=== PATIENT | female | born 1950 | race Caucasian/White ===

== ENCOUNTER 2019-05-21 11:25 | Emergency (ER) | payer OTHER, SELFPAY ==
[2019-05-21 11:38] VITALS: BP 129/89; PULSE 59; RESP 17; TEMP 36.3; O2SAT 97
--- NOTE | 2019-05-21 11:38 | DI.CT.S_ITS ---
PROCEDURE: CT HEAD/BRAIN WO CON INDICATIONS: glf, hit head on cement TECHNIQUE: Noncontrast 4.5 mm thick angled axial sections acquired from the foramen magnum to the vertex, with coronal and sagittal reformats. For radiation dose reduction, the following was used: automated exposure control, adjustment of mA and/or kV according to patient size. COMPARISON: None. FINDINGS: Image quality: Excellent. CSF spaces: Basal cisterns are patent. No extra-axial fluid collections. The ventricles are symmetric in size and shape. Brain: No intracranial bleeds or masses. There is cerebral volume loss for age, with resultant ventricular and sulcal prominence. There are periventricular and deep white matter chronic small vessel ischemic changes. There is intracranial internal carotid artery atherosclerosis. Skull and face: Calvarium and visualized facial bones appear intact, without suspicious lesions. Sinuses: Mucosal thickening can be seen within the visualized maxillary sinuses. The paranasal sinuses otherwise appear clear. No abnormal fluid is seen within the mastoid air cells or within the middle ear cavities. IMPRESSION: No acute intracranial hemorrhage. No displaced calvarial fracture can be seen. Dictated by: Vernon Briones M.D. on 05/21/2019 at 11:05 Approved by: Vernon Briones M.D. on 05/21/2019 at 11:06
--- NOTE | 2019-05-21 11:59 | ED.HEATRA ---
HPI - Head Injury <JOE Pickett - Last Filed: 05/21/19 12:50> General Chief complaint: Head Injury Stated complaint: fell and hit head Time Seen by Provider: 05/21/19 11:27 Source: patient and family Mode of arrival: ambulatory Limitations: no limitations History of Present Illness HPI Narrative: The patient is a 69-year-old female nonsmoker nondrinker with history of hypothyroid who presents with her for chief complaint of a ground level fall this morning. She states she was pulling on a road, it broke and she fell back hitting her head on cement. Afterwards she was dazed per her . Then she states she kept wanting to throw up. She denies any loss of consciousness. Her was there, but did not witness the fall. She denies any vomiting current dizziness or lightheadedness. She states she has pain on the side of her neck going down her arm, which correlates with her arthritis pain, but is worse right now. She denies any central neck or back pain. She denies any laceration. She complains of swelling on the back of her head, where it hit the cement. Her primary concern is a brain injury. Related Data Home Medications Medication Instructions Recorded Confirmed CA PANTOTHENATE/FOLIC ACID/VIT #0 05/23/13 (MULTIVITAMIN) DOCUSATE CALCIUM (SURFAK) #0 05/23/13 Fish Oil (FISH OIL~) 1,200 mg PO QDAY #0 05/23/13 VITAMIN E #0 05/23/13 [CALCIUM WITH VIT D] 1,000 mg PO QDAY #0 05/23/13 [PROGESSTERONE] 200 mg QDAY #0 05/23/13 [VITAMIN C / VIVI HIP] #0 05/23/13 estradiol [Estrace] #0 05/23/13 levothyroxine [Synthroid] 125 mcg PO QDAY #0 05/23/13 Allergies Allergy/AdvReac Type Severity Reaction Status Date / Time Penicillins [PENICILLINS] Allergy Intermediate Hives Unverified 05/21/19 11:31 aspartame [ASPARTAME] AdvReac Mild HEADACHE Unverified 01/27/18 12:12 Review of Systems <JOE Pickett - Last Filed: 05/21/19 12:50> Review of Systems GENERAL: Denies chills, fatigue, malaise, fever, sweats. HEENT: Denies sinus pain, ear pain, sore throat, difficulty swallowing, dizziness. RESPIRATORY: Denies dyspnea, cough, wheezing, hemoptysis, sputum. CARDIOVASCULAR: Denies chest pain, palpitations, orthopnea, edema, GASTROINTESTINAL: Denies nausea, vomiting, abdominal pain, diarrhea, constipation, melena. : Denies dysuria, frequency, incontinence, hematuria, urinary retention. MUSCULOSKELETAL: denies weakness, joint pain, or bony pain SKIN: Denies rash, skin lesions, or other NEUROLOGIC: See HPI PSYCHIATRIC: No concerning psychosocial issues. 12 point review of systems is negative except for those stated above PFSH <JOE Pickett - Last Filed: 05/21/19 12:50> Medical History (Updated 05/21/19 @ 12:22 by JOE Pickett) Hypothyroid (Acute) Social History Smoking Status: Never smoker Social History Smoking Status: Never smoker Exam <JOE Pickett - Last Filed: 05/21/19 12:50> Narrative Exam Narrative: GENERAL: This is a well-nourished, well-developed patient, in no acute distress HEAD: Atraumatic. Normocephalic. No temporal or scalp tenderness. EYES: Pupils equal round and reactive. Extraocular motions intact. No scleral icterus. No injection or drainage. ENT: Nose without bleeding, purulent drainage or septal hematoma. Throat without erythema, tonsillar hypertrophy or exudate. Uvula midline. Airway patent. NECK: Trachea midline. No JVD or lymphadenopathy. Supple, nontender, no meningeal signs. CARDIOVASCULAR: Regular rate and rhythm without murmurs, gallops, or rubs. RESPIRATORY: Clear to auscultation. Breath sounds equal bilaterally. No wheezes, rales, or rhonchi. No cough. No increased respiratory effort. No accessory muscle use. GASTROINTESTINAL: Abdomen soft, non-tender, nondistended. No hepato-splenomegaly, or palpable masses. No guarding. EXTREMITIES: No clubbing, cyanosis, or edema. No joint tenderness, effusion, or edema noted. BACK: Nontender without deformity or crepitance. No flank tenderness. No pain to C T or L spine palpation. Pain to left-sided sternocleidomastoid palpation. NEURO: AOx3. Steady gait. Strength is equal upper and lower extremities bilaterally. Clear speech. SKIN: No rash or erythema. Initial Vital Signs Initial Vital Signs: Vital Signs Temperature 97.4 F L 05/21/19 11:38 Pulse Rate 59 L 05/21/19 11:38 Respiratory Rate 17 05/21/19 11:38 Blood Pressure 129/89 05/21/19 11:38 Pulse Oximetry 97 05/21/19 11:38 <Radha Brock DO - Last Filed: 05/29/19 20:24> Initial Vital Signs Initial Vital Signs: Vital Signs Temperature 97.4 F L 05/21/19 11:38 Pulse Rate 59 L 05/21/19 11:38 Respiratory Rate 17 05/21/19 11:38 Blood Pressure 129/89 05/21/19 11:38 Pulse Oximetry 97 05/21/19 11:38 Scores <JOE Pickett - Last Filed: 05/21/19 12:50> GCS [place] coma scale eye opening: Spontaneous [place] coma scale verbal response: Orientated [place] coma scale motor response: Obey commands [place] coma scale total score: 15 Nexus Score for C-Spine Focal Neurologic deficit present: No Midline spinal tenderness present: No Altered level of conciousness present: No Intoxication present: No Distracting Injury Present: No Nexus Criteria for C-spine: 0 Course <JOE Pickett - Last Filed: 05/21/19 12:50> Orders Ordered: ED Orders 05/21/19 11:38 CT head/brain wo con Stat Vital Signs - 8 hr 05/21/19 11:38 Temperature 97.4 F L Pulse Rate 59 L Respiratory Rate 17 Blood Pressure [Right Arm] 129/89 Pulse Oximetry 97 <Radha Brock DO - Last Filed: 05/29/19 20:24> Orders Ordered: ED Orders 05/21/19 11:38 CT head/brain wo con Stat Vital Signs - 8 hr 05/21/19 11:38 Temperature 97.4 F L Pulse Rate 59 L Respiratory Rate 17 Blood Pressure [Right Arm] 129/89 Pulse Oximetry 97 MDM - Head Injury <JOE Pickett - Last Filed: 05/21/19 12:50> Imaging Data CT scan - head: Radiologist's impression: [address] [address] [address] Scan Report Signed Patient: Dominga Shah [facility]#: [id number] : 1950Acct:[id number] Age/Sex: 69 / FDate of Service: 05/21/19 Loc: ED Accession Number: [id number] Procedure: CT head/brain wo con Ordering Provider: Jelly Augustine PROCEDURE: CT HEAD/BRAIN WO CON INDICATIONS: glf, hit head on cement TECHNIQUE: Noncontrast 4.5 mm thick angled axial sections acquired from the foramen magnum to the vertex, with coronal and sagittal reformats. For radiation dose reduction, the following was used: automated exposure control, adjustment of mA and/or kV according to patient size. COMPARISON: None. FINDINGS: Image quality: Excellent. CSF spaces: Basal cisterns are patent. No extra-axial fluid collections. The ventricles are symmetric in size and shape. Brain: No intracranial bleeds or masses. There is cerebral volume loss for age, with resultant ventricular and sulcal prominence. There are periventricular and deep white matter chronic small vessel ischemic changes. There is intracranial internal carotid artery atherosclerosis. Skull and face: Calvarium and visualized facial bones appear intact, without suspicious lesions. Sinuses: Mucosal thickening can be seen within the visualized maxillary sinuses. The paranasal sinuses otherwise appear clear. No abnormal fluid is seen within the mastoid air cells or within the middle ear cavities. IMPRESSION: No acute intracranial hemorrhage. No displaced calvarial fracture can be seen. Dictated by: Vernon Briones M.D. on 05/21/2019 at 11:05 Approved by: Vernon Briones M.D. on 05/21/2019 at 11:06 [facility] Narrative Medical decision making narrative: The patient is a 69-year-old female who presents after a ground level fall, hitting her head on cement. She was dazed and had some nausea. Given her age and symptoms, I did obtain a head CT which was negative for any acute etiology at this time. I offered her pain medications in the emergency department, including muscle relaxers which she repeatedly declined. I discussed at length follow up with her PCP. Discussed coming back to the ER for any acute concerns such as confusion, incontinence of bowel, incontinence of bladder or saddle anesthesia. Given that she does have some concussion symptoms, I discussed brain rest as well. Patient has no questions or concerns upon discharge. Discharge Plan Departure Patient Disposition: Home Clinical Impression: Fall from ground level Concussion without loss of consciousness Qualifiers: Encounter type: initial encounter Qualified Code(s): S06.0X0A - Concussion without loss of consciousness, initial encounter Discharge Date/Time: 05/21/19 12:35 Interventions: ED Discharge Assessment Last Done: 05/21/19 12:40 Instructions: DI for Concussion, How to Prevent Falls Activity Restrictions/Additional Instructions: Your head CT today came back negative for any bleeding or acute etiology. Please follow up with your primary care provider. Please come back to emergency department for any acute concerns such as confusion, incontinence of bowel, incontinence of bladder or groin numbness. Prescriptions: No Action estradiol [Estrace] 1 MG tablet Qty: 0 RF: 0 levothyroxine [Synthroid] 125 MCG tablet 125 mcg PO QDAY Qty: 0 RF: 0 CA PANTOTHENATE/FOLIC ACID/VIT (MULTIVITAMIN) Qty: 0 RF: 0 DOCUSATE CALCIUM (SURFAK) Qty: 0 RF: 0 Fish Oil (FISH OIL~) 1,200 mg PO QDAY Qty: 0 RF: 0 VITAMIN E Qty: 0 RF: 0 [CALCIUM WITH VIT D] 1,000 mg PO QDAY Qty: 0 RF: 0 [PROGESSTERONE] 200 mg QDAY Qty: 0 RF: 0 [VITAMIN C / VIVI HIP] Qty: 0 RF: 0 Referrals: Jelly Rios MD [Primary Care Provider] - <Radha Brock DO - Last Filed: 05/29/19 20:24> Cosign ED Attending Carolature Attestation: I was immediately available in the department for consultation. Documentation has been reviewed. I agree with assessment and plan.
--- NOTE | 2019-05-21 12:03 | ED_ITS ---
HPI - Head Injury <JOE Pickett - Last Filed: 05/21/19 12:50> General Chief complaint: Head Injury Stated complaint: fell and hit head Time Seen by Provider: 05/21/19 11:27 Source: patient and family Mode of arrival: ambulatory Limitations: no limitations History of Present Illness HPI Narrative: The patient is a 69-year-old female nonsmoker nondrinker with history of hypothyroid who presents with her for chief complaint of a ground level fall this morning. She states she was pulling on a road, it broke and she fell back hitting her head on cement. Afterwards she was dazed per her . Then she states she kept wanting to throw up. She denies any loss of consciousness. Her was there, but did not witness the fall. She denies any vomiting current dizziness or lightheadedness. She states she has pain on the side of her neck going down her arm, which correlates with her arthritis pain, but is worse right now. She denies any central neck or back pain. She denies any laceration. She complains of swelling on the back of her head, where it hit the cement. Her primary concern is a brain injury. Related Data Home Medications Medication Instructions Recorded Confirmed CA PANTOTHENATE/FOLIC ACID/VIT #0 05/23/13 (MULTIVITAMIN) DOCUSATE CALCIUM (SURFAK) #0 05/23/13 Fish Oil (FISH OIL~) 1,200 mg PO QDAY #0 05/23/13 VITAMIN E #0 05/23/13 [CALCIUM WITH VIT D] 1,000 mg PO QDAY #0 05/23/13 [PROGESSTERONE] 200 mg QDAY #0 05/23/13 [VITAMIN C / VIVI HIP] #0 05/23/13 estradiol [Estrace] #0 05/23/13 levothyroxine [Synthroid] 125 mcg PO QDAY #0 05/23/13 Allergies Allergy/AdvReac Type Severity Reaction Status Date / Time Penicillins [PENICILLINS] Allergy Intermediate Hives Unverified 05/21/19 11:31 aspartame [ASPARTAME] AdvReac Mild HEADACHE Unverified 01/27/18 12:12 Review of Systems <JOE Pickett - Last Filed: 05/21/19 12:50> Review of Systems GENERAL: Denies chills, fatigue, malaise, fever, sweats. HEENT: Denies sinus pain, ear pain, sore throat, difficulty swallowing, dizziness. RESPIRATORY: Denies dyspnea, cough, wheezing, hemoptysis, sputum. CARDIOVASCULAR: Denies chest pain, palpitations, orthopnea, edema, GASTROINTESTINAL: Denies nausea, vomiting, abdominal pain, diarrhea, constipation, melena. : Denies dysuria, frequency, incontinence, hematuria, urinary retention. MUSCULOSKELETAL: denies weakness, joint pain, or bony pain SKIN: Denies rash, skin lesions, or other NEUROLOGIC: See HPI PSYCHIATRIC: No concerning psychosocial issues. 12 point review of systems is negative except for those stated above PFSH <JOE Pickett - Last Filed: 05/21/19 12:50> Medical History (Updated 05/21/19 @ 12:22 by JOE Pickett) Hypothyroid (Acute) Social History Smoking Status: Never smoker Social History Smoking Status: Never smoker Exam <JOE Pickett - Last Filed: 05/21/19 12:50> Narrative Exam Narrative: GENERAL: This is a well-nourished, well-developed patient, in no acute distress HEAD: Atraumatic. Normocephalic. No temporal or scalp tenderness. EYES: Pupils equal round and reactive. Extraocular motions intact. No scleral icterus. No injection or drainage. ENT: Nose without bleeding, purulent drainage or septal hematoma. Throat without erythema, tonsillar hypertrophy or exudate. Uvula midline. Airway patent. NECK: Trachea midline. No JVD or lymphadenopathy. Supple, nontender, no meningeal signs. CARDIOVASCULAR: Regular rate and rhythm without murmurs, gallops, or rubs. RESPIRATORY: Clear to auscultation. Breath sounds equal bilaterally. No wheezes, rales, or rhonchi. No cough. No increased respiratory effort. No accessory muscle use. GASTROINTESTINAL: Abdomen soft, non-tender, nondistended. No hepato- splenomegaly, or palpable masses. No guarding. EXTREMITIES: No clubbing, cyanosis, or edema. No joint tenderness, effusion, or edema noted. BACK: Nontender without deformity or crepitance. No flank tenderness. No pain to C T or L spine palpation. Pain to left-sided sternocleidomastoid palpation. NEURO: AOx3. Steady gait. Strength is equal upper and lower extremities bilaterally. Clear speech. SKIN: No rash or erythema. Initial Vital Signs Initial Vital Signs: Vital Signs Temperature 97.4 F L 05/21/19 11:38 Pulse Rate 59 L 05/21/19 11:38 Respiratory Rate 17 05/21/19 11:38 Blood Pressure 129/89 05/21/19 11:38 Pulse Oximetry 97 05/21/19 11:38 <Radha Brock DO - Last Filed: 05/29/19 20:24> Initial Vital Signs Initial Vital Signs: Vital Signs Temperature 97.4 F L 05/21/19 11:38 Pulse Rate 59 L 05/21/19 11:38 Respiratory Rate 17 05/21/19 11:38 Blood Pressure 129/89 05/21/19 11:38 Pulse Oximetry 97 05/21/19 11:38 Scores <JOE Pickett - Last Filed: 05/21/19 12:50> GCS [place] coma scale eye opening: Spontaneous [place] coma scale verbal response: Orientated [place] coma scale motor response: Obey commands [place] coma scale total score: 15 Nexus Score for C-Spine Focal Neurologic deficit present: No Midline spinal tenderness present: No Altered level of conciousness present: No Intoxication present: No Distracting Injury Present: No Nexus Criteria for C-spine: 0 Course <JOE Pickett - Last Filed: 05/21/19 12:50> Orders Ordered: ED Orders 05/21/19 11:38 CT head/brain wo con Stat Vital Signs - 8 hr 05/21/19 11:38 Temperature 97.4 F L Pulse Rate 59 L Respiratory Rate 17 Blood Pressure [Right Arm] 129/89 Pulse Oximetry 97 <Radha Brock DO - Last Filed: 05/29/19 20:24> Orders Ordered: ED Orders 05/21/19 11:38 CT head/brain wo con Stat Vital Signs - 8 hr 05/21/19 11:38 Temperature 97.4 F L Pulse Rate 59 L Respiratory Rate 17 Blood Pressure [Right Arm] 129/89 Pulse Oximetry 97 MDM - Head Injury <JOE Pickett - Last Filed: 05/21/19 12:50> Imaging Data CT scan - head: Radiologist's impression: [address] [address] [address] Scan Report Signed Patient: Dominga Shah [facility]#: [id number] : 1950Acct:[id number] Age/Sex: 69 / FDate of Service: 05/21/19 Loc: ED Accession Number: [id number] Procedure: CT head/brain wo con Ordering Provider: Jelly Augustine PROCEDURE: CT HEAD/BRAIN WO CON INDICATIONS: glf, hit head on cement TECHNIQUE: Noncontrast 4.5 mm thick angled axial sections acquired from the foramen magnum to the vertex, with coronal and sagittal reformats. For radiation dose reduction, the following was used: automated exposure control, adjustment of mA and/or kV according to patient size. COMPARISON: None. FINDINGS: Image quality: Excellent. CSF spaces: Basal cisterns are patent. No extra-axial fluid collections. The ventricles are symmetric in size and shape. Brain: No intracranial bleeds or masses. There is cerebral volume loss for age, with resultant ventricular and sulcal prominence. There are periventricular and deep white matter chronic small vessel ischemic changes. There is intracranial internal carotid artery atherosclerosis. Skull and face: Calvarium and visualized facial bones appear intact, without suspicious lesions. Sinuses: Mucosal thickening can be seen within the visualized maxillary sinuses. The paranasal sinuses otherwise appear clear. No abnormal fluid is seen within the mastoid air cells or within the middle ear cavities. IMPRESSION: No acute intracranial hemorrhage. No displaced calvarial fracture can be seen. Dictated by: Vernon Briones M.D. on 05/21/2019 at 11:05 Approved by: Vernon Briones M.D. on 05/21/2019 at 11:06 [facility] Narrative Medical decision making narrative: The patient is a 69-year-old female who presents after a ground level fall, hitting her head on cement. She was dazed and had some nausea. Given her age and symptoms, I did obtain a head CT which was negative for any acute etiology at this time. I offered her pain medications in the emergency department, including muscle relaxers which she repeatedly declined. I discussed at length follow up with her PCP. Discussed coming back to the ER for any acute concerns such as confusion, incontinence of bowel, incontinence of bladder or saddle anesthesia. Given that she does have some concussion symptoms, I discussed brain rest as well. Patient has no questions or concerns upon discharge. Discharge Plan Departure Patient Disposition: Home Clinical Impression: Fall from ground level Concussion without loss of consciousness Qualifiers: Encounter type: initial encounter Qualified Code(s): S06.0X0A - Concussion with out loss of consciousness, initial encounter Discharge Date/Time: 05/21/19 12:35 Interventions: ED Discharge Assessment Last Done: 05/21/19 12:40 Instructions: DI for Concussion, How to Prevent Falls Activity Restrictions/Additional Instructions: Your head CT today came back negative for any bleeding or acute etiology. Please follow up with your primary care provider. Please come back to emergency department for any acute concerns such as confusion, incontinence of bowel, incontinence of bladder or groin numbness. Prescriptions: No Action estradiol [Estrace] 1 MG tablet Qty: 0 RF: 0 levothyroxine [Synthroid] 125 MCG tablet 125 mcg PO QDAY Qty: 0 RF: 0 CA PANTOTHENATE/FOLIC ACID/VIT (MULTIVITAMIN) Qty: 0 RF: 0 DOCUSATE CALCIUM (SURFAK) Qty: 0 RF: 0 Fish Oil (FISH OIL~) 1,200 mg PO QDAY Qty: 0 RF: 0 VITAMIN E Qty: 0 RF: 0 [CALCIUM WITH VIT D] 1,000 mg PO QDAY Qty: 0 RF: 0 [PROGESSTERONE] 200 mg QDAY Qty: 0 RF: 0 [VITAMIN C / VIVI HIP] Qty: 0 RF: 0 Referrals: Jelly Rios MD [Primary Care Provider] - <Radha Brock DO - Last Filed: 05/29/19 20:24> Cosign ED Attending Carolature Attestation: I was immediately available in the department for consultation. Documentation has been reviewed. I agree with assessment and plan.
== END 2019-05-21 12:35 | disposition home or self-care (01) ==
PROVIDERS: Emergency Provider Nurse Practitioner Family; PCP Family Medicine
DX: S06.0X0A Concussion without loss of consciousness, initial encounter (principal); W19.XXXA Unspecified fall, initial encounter
CPT/HCPCS: 70450; 99282; 99284

== ENCOUNTER → 2019-11-04 12:05 | Outpatient (CLI) | payer OTHER, SELFPAY ==
[2019-11-04 12:45] LABS: Add Manual Diff / Slide Review NO; Basophils Absolute Auto 0 /uL (0-100); Basophils Percent Auto 1.3 % (0-2); Eosinophils Absolute Auto 100 /uL (0-450); Eosinophils Percent Auto 4.2 % (2-4); Hematocrit 39.9 % (36-46); Hemoglobin 13.5 g/dL (12.0-16.0); Lymphocytes Absolute Auto 800 /uL (1100-4500); Lymphocytes Percent Auto 24.5 % (25-40); Mean Corpuscular HGB Conc 33.9 % (30-36); Mean Corpuscular Hemoglobin 30.8 PG (26-34); Mean Corpuscular Volume 90.8 fL (80-100); Monocytes Absolute Auto 300 /uL (0-900); Monocytes Percent Auto 8.6 % (3-14); Neutrophils Absolute Auto 2000 /uL (1500-7000); Neutrophils Percent Auto 61.4 % (50-75); Platelet Count 240 X10^3/uL (150-400); Red Blood Cell Count 4.39 X10^6/uL (4.0-5.2); Red Cell Distribution Width 13.1 % (11.6-14.8); White Blood Cell Count 3.2 X10^3/uL (4.5-11.0)
[2019-11-04 12:54] LABS: Hemoglobin A1C% w Est Avg Glu 5.5 % (4.0-6.0)
[2019-11-04 13:14] LABS: Alanine Aminotransferase 29 IU/L (<35); Albumin 4.9 g/dL (3.5-5.0); Albumin Globulin Ratio 1.3 (1.0-2.8); Alkaline Phosphatase 83 U/L (38-126); Aspartate Aminotransferase 36 IU/L (14-36); BUN Creatinine Ratio 22.5 (6-22); Bilirubin Total 0.7 mg/dL (0.2-1.3); Blood Urea Nitrogen 18 mg/dL (7-17); Carbon Dioxide 31 mmol/L (22-32); Chloride 102 mmol/L (98-107); Estimated Glomerular Filt Rate > 60.0 mL/min (>60); Globulin 3.8 g/dL (1.7-4.1); Glucose 86 mg/dL (80-110); HEMOLYSIS < 15 (0-50); Potassium 4.1 mmol/L (3.4-5.1); Sodium 141 mmol/L (137-145); Total Protein 8.7 g/dL (6.3-8.2)
[2019-11-04 13:17] LABS: Rheumatoid Factor 84.9 IU/mL (<12.0)
[2019-11-04 13:21] LABS: Erythrocyte Sedimentation Rate 17 MM/HR (0-20)
[2019-11-04 14:20] LABS: Folate > 20.0 ng/mL (2.76-20.0); Vitamin B12 779 pg/mL (239-931)
[2019-11-08 08:36] LABS: ANA Pattern NUCLEAR, SPECKLED; ANA Screen, IFA POSITIVE (NEGATIVE)
[2019-11-08 11:52] LABS: CCP Antibody (IgG) > 250 Units (< 20)
[2019-11-08 16:12] LABS: Hepatitis A Antibody IgM NONREACTIVE; Hepatitis Acute Panel Interp 0.09; Hepatitis B Core Antibody IgM NONREACTIVE; Hepatitis B Surface Antigen NONREACTIVE; Hepatitis C Antibody NONREACTIVE
[2019-11-09 07:28] LABS: Alpha-Tocopherol 21.9 mg/L (5.7-19.9); Gamma-Tocopherol < 1.0 mg/L (< 4.4)
[2019-11-10 14:39] LABS: Cryoglobulin, Qualitative NEGATIVE
== END ==
PROVIDERS: Family Provider Family Medicine; PCP Family Medicine; Referring Provider Student in an Organized Health Care Education/Training Program; Visit Provider Nurse Practitioner
DX: R20.0 Anesthesia of skin (principal); R20.2 Paresthesia of skin; R52 Pain, unspecified
CPT/HCPCS: 36415; 80053; 80074; 82595; 82607; 82746; 83036; 83516; 84446; 85025; 85651; 86038; 86200; 86430

== ENCOUNTER → 2020-05-10 12:31 | Outpatient (CLI) | payer OTHER, SELFPAY | PROVIDERS: Family Provider Family Medicine; PCP Student in an Organized Health Care Education/Training Program; Referring Provider Student in an Organized Health Care Education/Training Program; Visit Provider Student in an Organized Health Care Education/Training Program | DX: M85.852 Other specified disorders of bone density and structure, left thigh (principal); Z78.0 Asymptomatic menopausal state; Z91.89 Other specified personal risk factors, not elsewhere classified; Z82.62 Family history of osteoporosis; M06.9 Rheumatoid arthritis, unspecified | CPT/HCPCS: 77080 ==

== ENCOUNTER → 2021-09-04 10:51 | Outpatient (CLI) | payer MEDICARE, BC, SELFPAY ==
[2021-09-04 11:56] LABS: Cholesterol 285 mg/dL (140-199); HDL Cholesterol 68 mg/dL (40-60); LDL Cholesterol Calculated 190 mg/dL (<100); Triglycerides 137 mg/dL (35-150)
[2021-09-04 12:45] LABS: TSH w/ Reflex to FT4 2.55 uIU/mL (0.47-4.68)
== END ==
PROVIDERS: Family Provider Family Medicine; PCP Student in an Organized Health Care Education/Training Program; Referring Provider Student in an Organized Health Care Education/Training Program; Visit Provider Student in an Organized Health Care Education/Training Program
DX: E78.5 Hyperlipidemia, unspecified (principal); E03.9 Hypothyroidism, unspecified
CPT/HCPCS: 36415; 80061; 84443